=== PATIENT | male | born 1945 | race Caucasian/White ===

== ENCOUNTER 2019-04-23 06:10 | Day surgery (SDC) | payer OTHER ==
[2019-04-22 12:17] VITALS: BMI 24.3
[2019-04-23] MEDS ORDERED: BUPIVACAINE HCL/PF 0.5% (5MG/ML) 10 ML VIAL ONE (07:29)
[2019-04-23] MEDS ORDERED: LIDOCAINE HCL 1%, 10 MG/ML (20ML VIAL) ONE (07:29)
[2019-04-23] MEDS ORDERED: BACITRACIN 15 GM TUBE TOPICAL OINTMENT ONE (07:29)
[2019-04-23] MEDS ORDERED: MIDAZOLAM HCL 2 MG/2 ML SINGLE DOSE VIAL ONE ×3 (07:29→07:46)
[2019-04-23] MEDS ORDERED: ACETAMINOPHEN 1000 MG/100 ML VIAL (NON FORMULARY) IVPB ONE ×2 (07:38→10:29)
--- NOTE | 2019-04-23 07:38 | HP ---
History & Physical Update - History History: No Change - Physical Physical: No Change - Assessment Assessment: No Change - Plan Plan: No Change
[2019-04-23] MEDS ORDERED: DEXTROSE 5%-0.45% SALINE 1,000 ML IV SCH (07:45)
[2019-04-23] MEDS ORDERED: IBUPROFEN 800 MG/8 ML IJ IVPB SCH (07:45)
[2019-04-23] MEDS ORDERED: LIDOCAINE 1%-EPI 1:100,000 30 ML MDV IJ ONE ×2 (07:46→08:32)
[2019-04-23] MEDS ORDERED: KETOROLAC TROMETHAMINE 30 MG/1 ML VIAL ONE (07:46)
[2019-04-23] MEDS ORDERED: PROPOFOL 20 ML ONE ×6 (07:46→09:40)
[2019-04-23] MEDS ORDERED: DEXAMETHASONE SOD PHOSPHATE 4 MG/1 ML VIAL ONE (07:46)
[2019-04-23] MEDS ORDERED: ceFAZolin SODIUM 1 GM VIAL IVPB ONE (07:52)
[2019-04-23] MEDS ORDERED: LIDOCAINE 1%/EPI 1:100000 (20 ML MULTI DOSE VIAL) IJ ONE ×2 (07:58→08:33)
[2019-04-23] MEDS ORDERED: PROMETHAZINE HCL 25 MG/1 ML VIAL IVPUSH PRN (10:10)
[2019-04-23] MEDS ORDERED: oxyCODONE HCL 5 MG TABLET PO PRN (10:10)
[2019-04-23] MEDS ORDERED: ONDANSETRON 4 MG/2 ML VIAL IVPUSH PRN (10:10)
[2019-04-23] MEDS ORDERED: ACETAMINOPHEN INJECTION 100 ML IVPB ONE (10:22)
[2019-04-23 12:12] VITALS: BP 128/85; PULSE 75; TEMP 97.9
--- NOTE | 2019-04-24 13:56 | PATH ---
Surgical Pathology Report Patient Name: TAE CHAVARRIA Med. Rec. #: [id number] /Age/Gender: 1945 (Age: 73) / F Account: [id number] Location: [facility] SURGICAL Taken: 04/23/2019 Received: 04/23/2019 Reported: 04/24/2019 Physicians: Agus Landers M.D. Specimen(s) Received A: RIGHT BATTERY AND LEAD B: LEFT BATTERY AND LEAD Clinical History Malfunction of interstim Final Diagnosis A. 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 MACROSCOPIC DIAGNOSIS. B. BATTERY AND LEAD, LEFT, REMOVAL: SPINDRAW OPERATOR. MACROSCOPIC DIAGNOSIS. Electronically Signed Jade Flores M.D. Gross Description A. Received fresh labeled "right battery and leads," is a 5.0 x 4.3 x 0.7 cm rogel metallic device, consistent with a battery. The specimen has the following inscription: "Medtronic InterStim II SN: [id number]." Also received within the same container is a 23 cm in length portion of rogel metallic, coiled wire. No soft tissue is present. No sections are submitted, gross only. B. Received fresh labeled "left battery and lead," is a 5.0 x 4.3 x 0.7 cm rogel metallic device, consistent with a battery. The specimen has the following inscription: "Medtronic InterStim II SN: [id number]." Also received within the same container is a 25 cm in length rogel metallic, coiled wire. No soft tissue is present. No sections are submitted, gross only. /04/23/2019 saudi04/23/2019
--- NOTE | 2019-04-26 00:32 | OP ---
DATE OF OPERATION: 04/23/2019 PREOPERATIVE DIAGNOSIS: Bilateral InterStim implants, nonfunctioning. POSTOPERATIVE DIAGNOSIS: Bilateral InterStim implants, nonfunctioning. PROCEDURE: Removal of batteries and leads bilaterally. SURGEON: Agus Landers MD ESTIMATED BLOOD LOSS: Minimal. PREOPERATIVE INDICATIONS: The patient is a 73-year-old male with history of urinary retention. He had bilateral InterStim implants which have worked for a long time. However, his overall condition has deteriorated, and now, he has to self-catheterize. He comes for removal of the leads and batteries. OPERATION: Patient brought to the OR, placed on the table in the prone position. All pressure points were protected. IV sedation was given with IV antibiotics. Timeout was performed. Incision was made over the right battery site, and battery was found and removed. An incision was made paramedian where the right lead inserted into the sacrum, and the lead was grasped with a Bella. My dissection was taken around the lead from fibrotic tissue with a peanut. The lead was then twisted in the Bella clamp as usual. However, the lead broke in half. portion of the lead that remained in the inside of the sacrum. On the left side then, the battery was removed, and the lead was removed similarly on the left paramedian incision. This time, the lead came out in its entirety. Other incisions were all closed in 2 layers. Incision was then taken down to the sacrum, and the S3 foramen was identified. The lead, however, could not be seen, although using fluoroscopy, it was visualized within the sacrum, but the lead itself could not be visualized with direct vision. Wounds were closed. Three layers of closure of the sacral incision were then done. Wounds were dressed. Patient was woken up. AGUS LANDERS M.D. [id number]
== END 2019-04-23 12:00 | disposition home or self-care (01) ==
LOC: JASU-SURG 06:10
PROVIDERS: ATTEND Urology
PROC: 0JPT0MZ Removal of Stimulator Generator from Trunk Subcutaneous Tissue and Fascia, Open Approach (ICD-10-PCS; 2019-04-23)
PROC: 01PY0MZ Removal of Neurostimulator Lead from Peripheral Nerve, Open Approach (ICD-10-PCS; principal; 2019-04-23 07:30)
DX: T85.113A Breakdown (mechanical) of implanted electronic neurostimulator, generator, initial encounter (principal); R33.9 Retention of urine, unspecified
CPT/HCPCS: 76000-TC-FY; 88300-TC; 94760; J0131